=== PATIENT | male | born 1965 | race Caucasian/White ===

== ENCOUNTER → 2019-02-26 14:52 | Outpatient (CLI) | payer MEDICAID, SELFPAY ==
--- NOTE | 2019-02-26 15:10 | US_ITS ---
US abdomen limited History:Right upper quadrant pain Ordering Physician:Donna Beavers APRN Patient Age: 53 years Comparison:02/25/2019 Findings: Pancreas: Poorly demonstrated due to overlying bowel gas. Liver:Unremarkable. No obvious mass or abnormal fluid collection. No ductal dilatation Right Kidney:Unremarkable. Normal size and echogenicity. No hydronephrosis Gallbladder:No gallstones, gallbladder wall thickening, pericholecystic fluid, or biliary dilatation. Impression:Negative gallbladder/right upper quadrant ultrasound
== END ==
PROVIDERS: PCP Family Medicine; Visit Provider Nurse Practitioner Family
DX: R10.11 Right upper quadrant pain (principal); R10.13 Epigastric pain; R11.2 Nausea with vomiting, unspecified
CPT/HCPCS: 76705

== ENCOUNTER → 2019-03-08 09:39 | Outpatient (CLI) | payer MEDICAID, SELFPAY | PROVIDERS: PCP Family Medicine; Visit Provider Family Medicine | DX: R10.11 Right upper quadrant pain (principal) ==

== ENCOUNTER → 2019-11-05 06:40 | Outpatient (CLI) | payer OTHER, SELFPAY ==
--- NOTE | 2019-11-05 06:40 | CA_ITS ---
APPROVED REPORT EXAM: Comprehensive 2D, Doppler, and color-flow Echocardiogram Infant Childcare Provider: Monica Duncan RDCS Ht: 6 ft 3 in Wt: 245lbs BSA: 2.39 BP: 155/86 mmHg Indications: Abnormal ECG, Diabetes, CAD, Hyperlipidemia, Hypertension/HDD 2D Dimensions LVOT 2.86 cm (M/F) 1.5-2.5 M-Mode Dimensions RVDd 2.57 cm (0.9-2.6) LVDd 7.09 cm (3.5-5.7) LVDs 5.63 cm (3.5-5.7) IVSd 1.22 cm (0.6-1.1) PWd 1.37 cm (0.6-1.1) EF (Teich) 40.80% FS 20.60% EDV (Teich) 262.90 mL ESV (Teich) 155.60 mL LV Diastology E/A Ratio 0.31 Mitral Valve MV A Velocity 60.00 (40-130 cm/s) Left Ventricle Left atrium is mildly enlarged, left ventricle is normal size, moderate concentric left ventricular hypertrophy, visually estimated ejection fraction approximately 40 to 45%, intraventricular septum appears to be mildly hypokinetic. Grade 1 diastolic dysfunction seen without tissue Doppler evidence of raise left atrial pressure. Right Ventricle Right atrium and right ventricular normal size and contractility. Aortic Valve Aortic valve is minimally thickened and fibrosed, there is no aortic stenosis or aortic insufficiency. Mitral Valve Mitral valve is grossly normal, there is mild mitral regurgitation. Tricuspid Valve Tricuspid valve is grossly normal, there is mild tricuspid regurgitation, tricuspid regurgitation jet velocity is inadequate for calculation of the right ventricular systolic pressure. Pulmonic Valve Pulmonic valve is poorly visualized. Great Vessels Aortic root is normal size. Pericardium No significant pericardial effusion noted. Conclusion 1. Mildly enlarged left atrium, normal left ventricular size, moderate concentric left ventricular hypertrophy, visually estimated ejection fraction 40 to 45% with segmental wall motion abnormality described above, grade 1 diastolic dysfunction seen without tissue Doppler evidence of raise left atrial pressure. 2. Mild mitral and tricuspid regurgitation. 3. No significant pericardial effusion noted. Electronically signed by : Adam Keller, 11/06/2019 05:43:31
--- NOTE | 2019-11-05 06:40 | CA_ITS ---
APPROVED REPORT Exam: Pharmacologic Technologist: bita villa, Ht: 6 ft 2 in Wt: 239 lbs BSA: 2.34 m2 HR: 80 bpm BP: 158/98 mmHg Indications: Abn. EKG Medical History Medications: Asa,,,,, Hydrocodone,,,,, Pantoprazole,,,,, Carvedilol,,,,, INSULIN,,,,, CloPIdogrel,,,,, FeNOfibrate,,,,, Cyclobenzaprine,,,,, Nitro,,,,, BusIPIRONE,,,,, Sitagliptin,,,,, Ezetlimibe,,,,, Allergies: Tatins, Metformin, sitagliptin, ezetinmibe Cardiac Risk Factors: HTN, Hyperlipidemia, Diabetes (insulin), FHX of CAD, Smoking Stress Test Details Test: LEXISCAN HR Resting HR: 78 bpm Max Heart Rate (APMHR): 168 bpm Max HR Achieved: 102 bpm Target HR (85% APMHR): 142 bpm % of APMHR: 60 Recovery HR: 94 bpm BP Resting BP: 158/98 mmHg Max BP: 158/98 mmHg Recovery BP: 140.0/90.0 mmHg ECG Resting ECG: Sinus rhythm Abn EKG Clinical Exercise duration: 04:00 min Highest Stage Achieved: Exercise capacity: 1.0 METs Stress ECG Conclusion Lexiscan portion completed. C/O SOB at peak infusion. No CP or ectopy. Greater than 1.5mm ST Depression. Images to follow. Electronically signed by : Adam Keller, 11/05/2019 20:01:51
--- NOTE | 2019-11-05 06:40 | NM_ITS ---
APPROVED REPORT Exam: Nuclear Stress Test Indication: CAD, Hx of SD, HTN, DM, High cholesterol, Tobacco use, Family history, Abnormal EKG Patient Location: Outpatient Stress Tech: Isabel Moore [place] Tech:Mali Shanks, ARRT, RT (R)(N) Ht: 6 ft 2 in Wt: 239 lbs HR: 80 bpm BP: 158/98 mmHg BSA: 2.34 m2 BMI: 30.6 History: CAD, Hx of SD, HTN, DM, High cholesterol, Tobacco use, Family history, Abnormal EKG Procedure: Patient received a 0.4 mg of intravenous Lexiscan, resting heart rate 80 bpm, resting blood pressure 158/98 mmHg, with Lexiscan maximum heart rate achived was 101 bpm which is Less than 85 % of the maximum predicted heart rate and blood pressure was 148/92 mmHg. With Lexiscan, patient denied any complaint of chest pain. Electrocardiogram Resting electrocardiogram shows sinus rhythm nonspecific ST-T changes, with Lexiscan there is additional millimeter ST segment depression noted from the baseline EKG. The EKG portion of the Lexiscan Myoview is nondiagnostic. Cardiac Stress and Resting SPECT Images: Cardiac Stress and Resting SPECT images were obtained using technetium 99m Myoview 31.6 mCi stress and 10.25 mCi at rest. Gated SPECT with analysis of segmental wall motion and calculation of the ejection fraction also done. Cardiac stress and resting SPECT images show decrease tracer activity in the inferolateral and lateral wall which improves on the resting images suggestive of reversible ischemia, computer derived ejection fraction is 33% with moderate inferolateral and lateral wall hypokinesis, right ventricle is normal size and contractility. Conclusion: 1. The EKG portion of the Lexiscan Myoview is nondiagnostic. 2. Scintigraphic evidence of reversible ischemia involving the inferolateral lateral wall, computer derived ejection fraction is 33% with segmental wall motion abnormality described above, right ventricle is normal size and contractility. 3. Abnormal Lexiscan Myoview study. Electronically signed by : Adam Keller, 11/05/2019 20:05:12
--- NOTE | 2019-11-05 09:19 | HMH.ITSHM ---
Current Home Medications as stated by this patient Jesus Manuel Macario or risk control field representative. []PANTOPRAZOLE NITRO INSULIN HYDROCODONE FENOFIBRATE CYCLOBENZPRINE CLOPIDOGREL CARVEDILOL BUSPIRONE ASA
== END ==
PROVIDERS: PCP Family Medicine; Visit Provider Nurse Practitioner Family
DX: R94.31 Abnormal electrocardiogram [ECG] [EKG] (principal); I25.10 Atherosclerotic heart disease of native coronary artery without angina pectoris; E78.5 Hyperlipidemia, unspecified; I11.9 Hypertensive heart disease without heart failure; F17.200 Nicotine dependence, unspecified, uncomplicated
CPT/HCPCS: 78452; 93017; 93306; A9502; J2785

== ENCOUNTER → 2021-04-23 08:45 | Outpatient (CLI) | payer OTHER, SELFPAY ==
[2021-04-23 09:50] LABS: Blood Urea Nitrogen 17 mg/dl (9-20); Estimated Glomerular Filt Rate 88 ml/min (>60); GFR (African American) 107 ML/MIN (>60)
== END ==
PROVIDERS: Visit Provider Family Medicine
DX: I10 Essential (primary) hypertension (principal)
CPT/HCPCS: 36415; 82565; 84520

== ENCOUNTER 2021-04-29 08:00 | Emergency (ER) | payer OTHER, SELFPAY ==
[2021-04-29 08:01] VITALS: BP 180/119; PULSE 98; RESP 18; TEMP 37.1; O2SAT 98; BMI 29.2
--- NOTE | 2021-04-29 08:21 | CT_ITS ---
PROCEDURE: CT ABDOMEN PELVIS W CON CLINICAL INDICATION: abdominal pain Epigastric pain radiating into the back COMPARISON: CT ABDPELW CT abdomen pelvis w con from 02/25/2019 TECHNIQUE: IV Contrast: 75ML Isovue 370 Oral Contrast None Axial images obtained with sagittal and coronal reformats. All CT scans at the facility use one or more dose reduction, viz: automated exposure control, ma/kV adjustment per patient size (including targeted exams where dose is matched to indication, i.e. head), or iterative reconstruction technique. FINDINGS: Fatty liver. The gallbladder is mildly distended. The spleen and adrenal glands are unremarkable. There is very mild haziness of the Lo pancreatic fat at the region of the head of the pancreas which was not present on 02/25/2019 suggesting mild acute pancreatitis. There is no evidence of pancreatic necrosis. There is mild thickening of the descending duodenum. No free air. No renal or ureteral calculi. No hydronephrosis. There is a small parenchymal scar in bobbing the right kidney laterally. No intestinal obstruction or free air. Mildly prominent small bowel loops are present in the left mid abdominal region with a few air-fluid levels possibly related to ileus. There is a small right inguinal hernia containing fat. There are few colonic diverticula but no evidence of diverticulitis. The appendix has an unremarkable appearance No acute bony findings. No pelvic mass. Small sclerotic focus is present in the left ilium medially and may be due to small bone island. IMPRESSION: 1. There is minimal haziness of the peripancreatic fat at the head of the pancreas and also along the descending and proximal transverse portion of the duodenum. These findings may be related to mild acute pancreatitis. Duodenitis could also cause these changes. Please correlate with clinical parameters 2. Other nonacute findings as described above. Dictated by: Jeremiah Cristobal MD 04/29/2021 09:22 Jeremiah Cristobal MD in [place] 04/29/2021 09:22
--- NOTE | 2021-04-29 08:31 | ECG_ITS ---
APPROVED REPORT Exam: Resting ECG HR:87 bpm ECG Measurements Heart Rate 87 AXES HI 120 P 35 QRSd 106 QRS -47 QT 394 T 149 QTc 474 Conclusion Normal sinus rhythm Left anterior fascicular block ST & T wave abnormality, consider lateral ischemia Prolonged QT Abnormal ECG Electronically signed by : Ashish Le MD 05/01/2021 12:11:00
[2021-04-29 08:38] LABS: Basophils % 0.3 % (0.1-2.0); Chloride 101 mmol/L (98-107); Eosinophils # 0.1 K/mm3 (0.0-0.4); Eosinophils % 0.8 % (0.1-12.0); Hematocrit 51.8 % (42.0-52.0); Lymphocytes # 1.9 K/mm3 (0.7-4.5); Lymphocytes % 18.3 % (10-50); Mean Corpuscular HGB Conc 32.8 g/dL (31.8-35.4); Mean Corpuscular Hemoglobin 28.7 pg (27.0-31.2); Mean Corpuscular Volume 87.3 fl (80-94); Mean Platelet Volume 8.2 fl (7.4-10.4); Monocytes # 0.6 K/mm3 (0.1-1.0); Monocytes % 5.3 % (1.7-9.3); Neutrophils % 75.3 % (37.0-80.0); Platelet Count 268 K/mm3 (142-424); Potassium 4.6 mmoL/L (3.5-5.1); Red Blood Count 5.93 M/mm3 (4.60-6.20); Red Cell Distribution Width 13.5 % (11.5-17.5); Sodium 139 mmol/L (136-145); White Blood Count 10.6 K/mm3 (4.8-10.8)
[2021-04-29 08:40] LABS: Alanine Aminotransferase 16 U/L (12-78); Alkaline Phosphatase 116 U/L (38-126); Aspartate Amino Transferase 21 U/L (17-59); Blood Urea Nitrogen 20 mg/dl (9-20); Creatinine Clearance Estimated 125 mL/min (50-200); Estimated Glomerular Filt Rate 78 ml/min (>60); GFR (African American) 95 ML/MIN (>60)
[2021-04-29 08:41] LABS: Albumin Level 4.6 g/dl (3.5-5.0); Albumin/Globulin Ratio 1.2 (1.1-1.8); Anion Gap 14.6 mEq/L (5-15); Calcium 9.2 mg/dl (8.4-10.2); Carbon Dioxide 28 mmol/L (22.0-30.0); Glucose 303 mg/dl (74-100); Lipase 1778 U/L (23-300); Total Protein,Serum 8.6 g/dl (6.3-8.2)
--- NOTE | 2021-04-29 09:12 | HMH.EDABDPAI ---
ED Disposition Clinical Impression: Pancreatitis Disposition: Home, Self-Care Condition on Discharge: Good Instructions: Acute Pancreatitis Prescriptions: Hydrocod/Acet 5/325 mg [Mallie 5/325mg tablet] 1 tab PO QID PRN 3 Days #12 tab PRN Reason: Mild Pain Transmission Status: Received by [facility] Ondansetron [Zofran 4mg ODT] 4 mg PO TIDP PRN #15 tab PRN Reason: Nausea Transmission Status: Pending to [facility] Referrals: Ashish Eisenberg MD [Primary Care Provider] - - Critical Care Critical Care Time: No Attestation: On 04/29/21, the high probability of a clinically significant, sudden or life threatening deterioration of the following system(s) required my full and direct attention, intervention and personal management. The time I documented below is in addition to time spent performing reported procedures but includes the following listed in this critical care notation. Medical Decision Making - Medical Records Medical records reviewed: Yes: I reviewed the patient's medical records. - Puma Inquiry Pt receiving controlled substance: No Vital Signs: 04/29/21 08:01 Temperature 98.7 F Temperature Source Oral Pulse Rate [Right Radial] 98 H Respiratory Rate 18 Blood Pressure [Right Arm] 180/119 H Blood Pressure Mean [Right Arm] 139 Blood Pressure Source [Right Arm] Automatic Cuff Blood Pressure Position [Right Arm] Sitting 02 Sat by Pulse Oximetry 98 Oxygen Delivery Method Room Air - Lab Data Lab Results 04/29/21 08:22: WBC 10.6, RBC 5.93, Hgb 17.0, Hct 51.8, MCV 87.3, MCH 28.7, MCHC 32.8, RDW 13.5, Plt Count 268, MPV 8.2, Neut % (Auto) 75.3, Lymph % (Auto) 18.3, [place] % (Auto) 5.3, Eos % (Auto) 0.8, Baso % (Auto) 0.3, Neut # (Auto) 8.0 H, Lymph # (Auto) 1.9, [place] # (Auto) 0.6, Eos # (Auto) 0.1, Baso # (Auto) 0.0 04/29/21 08:22: Sodium 139, Potassium 4.6, Chloride 101, Carbon Dioxide 28, Anion Gap 14.6, BUN 20, Creatinine 1.00, Estimated Creat Clear 125, Estimated GFR 78, Est GFR ( Amer) 95, Glucose 303 H, Calcium 9.2, Total Bilirubin 1.0, AST 21, ALT 16, Alkaline Phosphatase 116, Total Protein 8.6 H, Albumin 4.6, Globulin 4.0 H, Albumin/Globulin Ratio 1.2, Lipase 1778 H Result diagrams: 04/29/21 08:22 04/29/21 08:22 Orders (Tests/Meds): ED MEDICATIONS Discontinued Medications Generic Name Dose Route Start Last Admin Trade Name Freq PRN Reason Stop Dose Admin Belladonna Alkaloids 60 ml 04/29/21 08:23 04/29/21 08:42 Gi Cocktail 60ml Udc PO 04/29/21 08:24 60 ml ONCE ONE Administration Sodium Chloride 1,000 mls @ 999 mls/hr 04/29/21 08:30 04/29/21 08:41 Sod Chlor 0.9% 1000ml Bag IV 04/29/21 09:30 999 mls/hr .Q1H1M ARISTIDES Administration Iopamidol 75 ml 04/29/21 08:56 04/29/21 08:57 Iopamidol-370 (76%);100ml Bottle IV 04/29/21 08:57 75 ml ONCE ONE Administration Morphine Sulfate 4 mg 04/29/21 08:21 04/29/21 08:42 Morphine 4mg/Ml Syringe IV 04/29/21 08:22 4 mg ONCE ONE Administration Ondansetron HCl 4 mg 04/29/21 08:21 04/29/21 08:42 Ondansetron 4mg Odt SL 04/29/21 08:22 Not Given ONCE ONE Ondansetron HCl 4 mg 04/29/21 08:43 04/29/21 08:43 Ondansetron 4mg/2ml Vial IV 04/29/21 08:44 4 mg ONCE ONE Administration Sodium Chloride 10 ml 04/29/21 08:56 04/29/21 08:57 Sodium Chloride 0.9% 10ml Syr (Rad Only) IV 04/29/21 08:57 10 ml ONCE ONE Administration Medical Decision Narrative: 55 yo M presents with abdominal pain. He is in no acute distress nontoxic-appearing comfortable in the bed however does have tender abdomen. Vital signs otherwise stable. CT scanning and labs obtained given pain medicine. Lipase did return at greater than 1700. Consistent with acute pancreatitis. CT scan shows no complications. Patient's pain is markedly improved. He is requesting be discharged at this time plan to discharge with pain meds and nausea meds and precautions for pancreatitis
[2021-04-29 10:14] VITALS: BP 144/100; PULSE 79; RESP 20; TEMP 36.9; O2SAT 94
== END 2021-04-29 10:16 | disposition home or self-care (01) ==
PROVIDERS: Emergency Provider Emergency Medicine; PCP Family Medicine
DX: K85.90 Acute pancreatitis without necrosis or infection, unspecified (principal); E11.65 Type 2 diabetes mellitus with hyperglycemia; Z79.899 Other long term (current) drug therapy; F17.210 Nicotine dependence, cigarettes, uncomplicated
CPT/HCPCS: 74177; 80053; 83690; 85025; 93005; 96365; 96375; 99283; J2405; Q9967

== ENCOUNTER → 2021-05-08 12:00 | Outpatient (CLI) | payer OTHER, SELFPAY ==
--- NOTE | 2021-05-08 12:13 | CT_ITS ---
Procedure: CT ANGIO ABDOMEN CLINICAL HISTORY: ESSENTIAL PRIMARY HYPERTENSION COMPARISON: No exams were available for comparison TECHNIQUE: IV Contrast: 100ml Isovue 370 Axial images obtained with sagittal and coronal reformats. All CT scans at the facility use one or more dose reduction, viz: automated exposure control, ma/kV adjustment per patient size (including targeted exams where dose is matched to indication, i.e. head), or iterative reconstruction technique. FINDINGS: There are mild atheromatous changes the mid and distal abdominal aorta with mild fusiform dilatation of the infrarenal abdominal aorta measuring up to 2.6 by 2.5 cm extending to the aortic bifurcation. The celiac and superior mesenteric arteries have an unremarkable appearance. The DEAN is patent. There is a single renal artery to each kidney. No renal artery stenosis apparent. No evidence fibromuscular dysplasia. No renal artery aneurysm. 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 The left common iliac is also slightly prominent at 1.2 cm. Atheromatous changes involve the iliac vessels but no significant stenosis is evident. No vascular dissection is apparent. No renal mass. The adrenal glands have an unremarkable appearance. Incidental note is made of colonic diverticulosis. No evidence of diverticulitis. The liver, spleen, pancreas, kidneys, and adrenal glands have an unremarkable appearance. No evidence of appendicitis. There is a mild amount of retained colonic feces. IMPRESSION: 1. No evidence of renal artery stenosis, aneurysm, FMD, or renal mass. No adrenal mass. 2. Mild fusiform dilatation of the lower abdominal aorta extending to and involving the aortic bifurcation measuring 2.6 x 2.5 cm with fusiform dilatation of the right common iliac artery at 1.8 cm. Dictated by: Jeremiah Cristobal MD 05/12/2021 08:30 Jeremiah Cristobal MD in [place] 05/12/2021 08:30
[2021-05-08 12:25] LABS: Blood Urea Nitrogen 18 mg/dl (9-20); Estimated Glomerular Filt Rate 88 ml/min (>60); GFR (African American) 107 ML/MIN (>60)
== END ==
PROVIDERS: PCP Family Medicine; Visit Provider Family Medicine
DX: I10 Essential (primary) hypertension (principal)
CPT/HCPCS: 36415; 74175; 82565; 84520; Q9967

== ENCOUNTER 2021-11-28 16:29 | Inpatient (IN) | payer OTHER, SELFPAY ==
[2021-11-28] VITALS (30 sets, daily range): BP systolic 110–137; BP diastolic 65–98; PULSE 60–167; RESP 10–24; TEMP 36.6–36.8; O2SAT 83–103; BMI 28.2; BMI 28.3
--- NOTE | 2021-11-28 16:52 | XR_ITS ---
PROCEDURE INFORMATION: Exam: XR Chest Exam date and time: 11/28/2021 5:02 PM Age: 56 years old Clinical indication: Shortness of breath; Additional info: Jose SOAlana TECHNIQUE: Imaging protocol: XR of the chest. Views: 1 view. COMPARISON: CR Chest 02/25/2019 11:27 PM FINDINGS: Airway: Patent Lungs: Low lung volumes causes crowding of the bronchovascular structures. No acute interstitial or airspace disease. Pleural spaces: Unremarkable. No pleural effusion. No pneumothorax. Heart/Mediastinum: Cardiomediastinal silhouette is magnified due to technique. Bones/joints: No acute skeletal abnormality or aggressive osseous lesion. IMPRESSION: No acute thoracic pathology.
--- NOTE | 2021-11-28 16:52 | ECG_ITS ---
APPROVED REPORT Exam: Resting ECG HR:157 bpm ECG Measurements Heart Rate 157 AXES QRSd 113 QRS 49 QT 301 T 192 QTc 389 Conclusion ATRIAL FIBRILLATION WITH RAPID VENTRICULAR RESPONSE MODERATE INTRAVENTRICULAR CONDUCTION DELAY [110+ ms QRS DURATION] MARKED ST DEPRESSION, CONSIDER SUBENDOCARDIAL INJURY [0.2+ mV ST DEPRESSION] ACUTE OK UNCONFIRMED REPORT Electronically signed by : Ashish Le MD 11/29/2021 20:16:37
[2021-11-28 17:14] LABS: Chloride 104 mmol/L (98-107)
[2021-11-28 17:15] LABS: Potassium 3.9 mmoL/L (3.5-5.1); Sodium 137 mmol/L (136-145)
[2021-11-28 17:18] LABS: Anion Gap 11.9 mEq/L (5-15); Blood Urea Nitrogen 25 mg/dl (9-20); Carbon Dioxide 25 mmol/L (22.0-30.0); Creatinine Clearance Estimated 92 mL/min (50-200); Estimated Glomerular Filt Rate 58 ml/min (>60); GFR (African American) 70 ML/MIN (>60); Glucose 335 mg/dl (74-100)
[2021-11-28 17:21] LABS: Basophils # 0.1 K/mm3 (0-0.2); Basophils % 1.1 % (0.1-2.0); Eosinophils # 0.1 K/mm3 (0.0-0.4); Eosinophils % 0.7 % (0.1-12.0); Hematocrit 47.8 % (42.0-52.0); Hemoglobin 15.4 g/dL (14.1-18.0); Lymphocytes # 2.8 K/mm3 (0.7-4.5); Lymphocytes % 23.8 % (10-50); Mean Corpuscular HGB Conc 32.3 g/dL (31.8-35.4); Mean Corpuscular Hemoglobin 29.2 pg (27.0-31.2); Mean Corpuscular Volume 90.5 fl (80-94); Mean Platelet Volume 8.8 fl (7.4-10.4); Monocytes # 0.6 K/mm3 (0.1-1.0); Neutrophils # 8.2 K/mm3 (1.8-7.8); Neutrophils % 69.5 % (37.0-80.0); Platelet Count 321 K/mm3 (142-424); Red Blood Count 5.28 M/mm3 (4.60-6.20); Red Cell Distribution Width 14.6 % (11.5-17.5); White Blood Count 11.8 K/mm3 (4.8-10.8)
[2021-11-28 17:28] LABS: NT Pro Brain Natriuretic Pep. 1230 pg/mL (0-125)
[2021-11-28 17:30] LABS: Troponin I 0.03 ng/ml (0.00-0.034)
--- NOTE | 2021-11-28 17:31 | PC.NURSE ---
2 EKG upon arrival. hr lowered with med. stil Afib rvr
[2021-11-28 17:44] LABS: Coronavirus 19, PCR Not Detected (NotDetected); Influenza A, PCR Not Detected (NotDetected); Influenza B, PCR Not Detected (NotDetected)
[2021-11-28 19:57] LABS: Troponin I 0.53 ng/ml (0.00-0.034)
--- NOTE | 2021-11-28 19:58 | PC.NURSE ---
Dr. Santiago notifeid of critical troponin
--- NOTE | 2021-11-28 20:09 | PC.NURSE ---
Called [facility] and s/w Jaylen, for xarelto dosing for new onset afib. States 20mg daily
--- NOTE | 2021-11-28 20:22 | HMH.EDGENADL ---
ED Disposition Clinical Impression: Atrial fibrillation with rapid ventricular response, NSTEMI (non-ST elevated myocardial infarction) Disposition: Admitted As Inpatient Condition on Discharge: Good - Critical Care Critical Care Time: Yes Attestation: On 11/28/21, the high probability of a clinically significant, sudden or life threatening deterioration of the following system(s) required my full and direct attention, intervention and personal management. The time I documented below is in addition to time spent performing reported procedures but includes the following listed in this critical care notation. Vital system(s) involved:: Circulatory Failure My critical care processes included: Assessment & monitoring of V/S, Initial and Re-exams, Data Review/Interpretation, Coordinating Care, Medication Orders and management Medical Decision Making - Medical Records Medical records reviewed: Yes: I reviewed the patient's medical records. - Puma Inquiry Pt receiving controlled substance: No Vital Signs: 11/28/21 16:29 11/28/21 16:42 11/28/21 17:01 Temperature 98.3 F Temperature Source Oral Pulse Rate 61 101 H Pulse Rate [Right Radial] 167 H Respiratory Rate 22 23 21 Blood Pressure 115/78 112/67 Blood Pressure [Right Arm] 127/85 Blood Pressure Mean 85 85 Blood Pressure Mean [Right Arm] 99 Blood Pressure Source [Right Arm] Automatic Cuff Blood Pressure Position [Right Arm] Sitting 02 Sat by Pulse Oximetry 96 97 95 Oxygen Delivery Method Room Air 11/28/21 17:30 11/28/21 17:47 11/28/21 17:51 Temperature Temperature Source Pulse Rate 125 H 152 H 118 H Pulse Rate [Right Radial] Respiratory Rate 19 22 17 Blood Pressure 127/70 127/65 128/96 H Blood Pressure [Right Arm] Blood Pressure Mean 90 81 106 Blood Pressure Mean [Right Arm] Blood Pressure Source [Right Arm] Blood Pressure Position [Right Arm] 02 Sat by Pulse Oximetry 96 97 97 Oxygen Delivery Method 11/28/21 18:01 11/28/21 18:11 11/28/21 18:21 Temperature Temperature Source Pulse Rate 122 H 119 H 108 H Pulse Rate [Right Radial] Respiratory Rate 13 17 24 Blood Pressure 120/69 121/65 110/69 Blood Pressure [Right Arm] Blood Pressure Mean 86 89 82 Blood Pressure Mean [Right Arm] Blood Pressure Source [Right Arm] Blood Pressure Position [Right Arm] 02 Sat by Pulse Oximetry 96 Oxygen Delivery Method 11/28/21 18:31 11/28/21 18:41 11/28/21 18:51 Temperature Temperature Source Pulse Rate 93 H 119 H 103 H Pulse Rate [Right Radial] Respiratory Rate 22 18 20 Blood Pressure 127/75 119/72 136/81 Blood Pressure [Right Arm] Blood Pressure Mean 81 77 93 Blood Pressure Mean [Right Arm] Blood Pressure Source [Right Arm] Blood Pressure Position [Right Arm] 02 Sat by Pulse Oximetry 96 97 96 Oxygen Delivery Method - Lab Data Lab Results 11/28/21 16:30: WBC 11.8 H, RBC 5.28, Hgb 15.4, Hct 47.8, MCV 90.5, MCH 29.2, MCHC 32.3, RDW 14.6, Plt Count 321, MPV 8.8, Neut % (Auto) 69.5, Lymph % (Auto) 23.8, [place] % (Auto) 5.0, Eos % (Auto) 0.7, Baso % (Auto) 1.1, Neut # (Auto) 8.2 H, Lymph # (Auto) 2.8, [place] # (Auto) 0.6, Eos # (Auto) 0.1, Baso # (Auto) 0.1 11/28/21 16:30: Sodium 137, Potassium 3.9, Chloride 104, Carbon Dioxide 25, Anion Gap 11.9, BUN 25 H, Creatinine 1.30 H, Estimated Creat Clear 92, Estimated GFR 58 L, Est GFR ( Amer) 70, Glucose 335 H, Calcium 8.0 L, Troponin I 0.03 11/28/21 16:30: NT-Pro-B Natriuret Pep 1230 H 11/28/21 17:39: SARS-CoV-2 (PCR) Not detected, Influenza A Untype (PCR) Not detected, Influenza Type B (PCR) Not detected 11/28/21 19:10: Troponin I 0.53 H Result diagrams: 11/28/21 16:30 11/28/21 16:30 Orders (Tests/Meds): ED MEDICATIONS Generic Name Dose Route Start Last Admin Trade Name Freq PRN Reason Stop Dose Admin Diltiazem HCl 100 mg/ Sodium 100 mls @ 5 mls/hr 11/28/21 17:45 11/28/21 18:01 Chloride IV
--- NOTE | 2021-11-28 21:00 | ECG_ITS ---
APPROVED REPORT Exam: Resting ECG HR:81 bpm ECG Measurements Heart Rate 81 AXES QRSd 114 QRS -8 QT 395 T 181 QTc 432 Conclusion ATRIAL FIBRILLATION MODERATE INTRAVENTRICULAR CONDUCTION DELAY [110+ ms QRS DURATION] ST DEVIATION AND MODERATE T-WAVE ABNORMALITY, CONSIDER LATERAL ISCHEMIA [-0.1+ mV T-WAVE IN I/aVL/V5/V6] ABNORMAL ECG UNCONFIRMED REPORT Electronically signed by : Ashish Le MD 11/29/2021 20:12:36
--- NOTE | 2021-11-28 21:43 | PC.NURSE ---
second ekg completed by Clark Jimenez RN
--- NOTE | 2021-11-28 22:31 | PC.NURSE ---
patient up to floor via wheelchair @ this time.
[2021-11-28 23:22] LABS: POC Glucose,Bedside 259 (70-110)
[2021-11-28 23:37] LABS: Troponin I 2.66 ng/ml (0.00-0.034)
[2021-11-29] VITALS (9 sets, daily range): BP systolic 124–174; BP diastolic 68–99; PULSE 70–84; RESP 16–20; TEMP 36.6–36.9; O2SAT 94–97
[2021-11-29 00:42] LABS: PTT Heparin (inpatient only) 27.5 Seconds (23.6-34.0)
[2021-11-29 06:17] LABS: POC Glucose,Bedside 227 (70-110)
--- NOTE | 2021-11-29 06:39 | PC.NURSE ---
pt has rested intermittently since arriving to floor, has not complained of chest pain or SOA, EKG done when patient arrived to floor, Dr. Kc notified of pt converting to SR and gave order for PO cardizem, PO med given at 2330 and cardizem gtt turned off at 0030, critical troponin of 2.66 called at 2337, Dr. Kc notified and gave order for heparin bolus and gtt, [facility] contacted for dosing, baseline PTT drawn, pt has remained in SR t/o shift with HR 73-83, systolic BP 124-147, using urinal independently, 350 mL out so far this shift
[2021-11-29 07:34] LABS: Basophils # 0.1 K/mm3 (0-0.2); Basophils % 0.6 % (0.1-2.0); Eosinophils # 0.1 K/mm3 (0.0-0.4); Eosinophils % 1.5 % (0.1-12.0); Lymphocytes # 2.1 K/mm3 (0.7-4.5); Lymphocytes % 28.3 % (10-50); Mean Corpuscular HGB Conc 31.2 g/dL (31.8-35.4); Mean Corpuscular Hemoglobin 28.8 pg (27.0-31.2); Mean Corpuscular Volume 92.5 fl (80-94); Mean Platelet Volume 8.7 fl (7.4-10.4); Monocytes # 0.5 K/mm3 (0.1-1.0); Monocytes % 6.3 % (1.7-9.3); Neutrophils # 4.7 K/mm3 (1.8-7.8); Neutrophils % 63.3 % (37.0-80.0); Platelet Count 235 K/mm3 (142-424); Red Blood Count 4.87 M/mm3 (4.60-6.20); Red Cell Distribution Width 14.7 % (11.5-17.5); White Blood Count 7.5 K/mm3 (4.8-10.8)
[2021-11-29 07:37] LABS: Anion Gap 6.7 mEq/L (5-15); Blood Urea Nitrogen 20 mg/dl (9-20); Calcium 7.9 mg/dl (8.4-10.2); Carbon Dioxide 30 mmol/L (22.0-30.0); Chloride 104 mmol/L (98-107); Creatinine Clearance Estimated 150 mL/min (50-200); Estimated Glomerular Filt Rate 101 ml/min (>60); GFR (African American) 122 ML/MIN (>60); Glucose 218 mg/dl (74-100); Potassium 3.7 mmoL/L (3.5-5.1); Sodium 137 mmol/L (136-145)
[2021-11-29 07:38] LABS: PTT Heparin (inpatient only) 27.9 Seconds (23.6-34.0)
--- NOTE | 2021-11-29 08:56 | HMH.HP ---
*Admission Date: 11/28/21 *Chief complaint: Dyspnea/chest pressure *History of present illness: 56-year-old white male, prior patient of Dr. Eisenberg who follows with Dr. Kc for coronary care and has had 5 stents placed over the past several years, who remains a heavy smoker, came to the emergency department with a feeling of new onset chest pressure, rapid heart rate and presyncope. Found to have A. fib with rapid ventricular response. ER treatment with bolus Cardizem resulted in lower rate, he was placed on p.o. Cardizem, and was found to have slightly elevated troponin levels. Admitted to hospital for further diagnostic testing and observation. [facility] History I have reviewed the patient's past medical history: Yes Medical History: Reports:: Atherosclerotic Heart Disease, Atrial Fibrillation, Coronary Artery Disease, Diabetes Mellitus Type 2, Hyperlipidemia, Hypertension, Myocardial Infarction Denies:: Cancer, Diabetes Mellitus Type 1, MRSA *Have you ever received a pneumonia vaccine?: No *Have you received a flu vaccine this season?: No Other Surgeries: Yes: Cardiac Catheterization ([facility] 11/07/14 2 stents, [facility] 06/12/18 3 stents) Amputation: No - *Social History Smoking Status: Current every day smoker Tobacco Type: cigarettes # Packs/Day (cigarettes): 1 Alcohol Intake: never Substance Use Type: denies use *Occupational Status:: employed *Travel in the last 8 weeks: None Family Hx:: Diabetes, Heart Attack Review of Systems - Review of Systems Review of systems:: pertinent systems reviewed and negative unless documented below This morning patient denies complaints except for very mild fatigue. Notes that his chest pressure, syncope symptomatology and rapid heart rate have resolved. [facility] Home Medications Medication Instructions Recorded Confirmed Type carvedilol 25 mg tablet 25 mg PO BID 06/16/18 11/28/21 History clopidogrel 75 mg tablet 75 mg PO DAILY 06/16/18 11/29/21 History hydrocodone 10 mg-acetaminophen 1 tab PO Q4-6H PRN 06/16/18 11/28/21 History 325 mg tablet insulin degludec 100 unit/mL (3 50 unit SQ DAILY ml 06/19/18 11/28/21 History mL) subcutaneous pen cyclobenzaprine 10 mg tablet 10 mg PO TID PRN 10/16/19 11/28/21 History pantoprazole 40 mg tablet,delayed 40 mg PO DAILY tab 10/16/19 11/28/21 History release Aspirin [Low Dose Aspirin EC] 81 mg PO DAILY 11/28/21 11/28/21 History Allergies Allergy/AdvReac Type Severity Reaction Status Date / Time Bvsicoz-Xya-Agd Reductase Allergy Severe Muscle Pain Verified 11/29/21 02:50 Inhibitor metformin [From Sepumet] Allergy Verified 11/29/21 02:50 sitagliptin [From Janumet] Allergy Verified 11/29/21 02:50 ezetimibe [From Zetia] AdvReac muscle Verified 11/29/21 02:50 cramps TRAMADOL Allergy Intermediate I-ITCHING Uncoded 10/16/19 09:31 From OXYCONTIN Allergy Unknown I-ITCHING Uncoded 10/16/19 09:31 LISINOPRIL Allergy Unknown S-SWELLS-OR Uncoded 10/16/19 09:31 AL/THROAT Exam Vital signs and Labs for Last 24 Hours: Temp Pulse Resp BP Pulse Ox 97.8 F 70 16 151/92 H 95 11/29/21 08:00 11/29/21 08:00 11/29/21 08:00 11/29/21 08:00 11/29/21 08:00 Laboratory Results - last 24 hr 11/28/21 16:30: WBC 11.8 H, RBC 5.28, Hgb 15.4, Hct 47.8, MCV 90.5, MCH 29.2, MCHC 32.3, RDW 14.6, Plt Count 321, MPV 8.8, Neut % (Auto) 69.5, Lymph % (Auto) 23.8, [place] % (Auto) 5.0, Eos % (Auto) 0.7, Baso % (Auto) 1.1, Neut # (Auto) 8.2 H, Lymph # (Auto) 2.8, [place] # (Auto) 0.6, Eos # (Auto) 0.1, Baso # (Auto) 0.1 11/28/21 16:30: Sodium 137, Potassium 3.9, Chloride 104, Carbon Dioxide 25, Anion Gap 11.9, BUN 25 H, Creatinine 1.30 H, Estimated Creat Clear 92, Estimated GFR 58 L, Est GFR ( Amer) 70, Glucose 335 H, Calcium 8.0 L, Troponin I 0.03 11/28/21 16:30: NT-Pro-B Natriuret Pep 1230 H 11/28/21 17:39: SARS-CoV-2 (PCR) Not detected, Influenza A Untype (PCR) Not detected, Influenza Type B (PCR) Not detected 11/28/21 19:10: Troponin I 0.53 H 03
--- NOTE | 2021-11-29 10:47 | HMH.PHAHEP ---
[facility] Pharmacy Heparin Dosing - Demographic Data Admission date:: 11/28/21 Date: 11/29/21 Time: 10:47 Allergies/Adverse Reactions: Allergies Allergy/AdvReac Type Severity Reaction Status Date / Time Qbfqsxk-Aqb-Nlw Reductase Allergy Severe Muscle Pain Verified 11/29/21 02:50 Inhibitor metformin [From Janumet] Allergy Verified 11/29/21 02:50 sitagliptin [From Janumet] Allergy Verified 11/29/21 02:50 ezetimibe [From Zetia] AdvReac muscle Verified 11/29/21 02:50 cramps TRAMADOL Allergy Intermediate I-ITCHING Uncoded 10/16/19 09:31 From OXYCONTIN Allergy Unknown I-ITCHING Uncoded 10/16/19 09:31 LISINOPRIL Allergy Unknown S-SWELLS-OR Uncoded 10/16/19 09:31 AL/THROAT Height: 1.88 m Weight: 100.2 kg - Indication Medication therapy:: Heparin Patient Problems: Current Active Problems Atrial fibrillation with rapid ventricular response (Acute) NSTEMI (non-ST elevated myocardial infarction) (Acute) Coronary arteriosclerosis (Chronic) Hypertensive heart disease (Chronic) Tobacco dependence syndrome (Chronic) Hyperlipidemia (Chronic) Diabetes mellitus (Chronic) CVA?: No Bleeding problem?: No Kidney disease?: No MO?: Yes Desired PTT range:: Other - Labs Anticoagulation Lab Results:: 11/28/21 11/29/21 16:30 06:47 Hgb 15.4 14.0 L Hct 47.8 45.0 Plt Count 321 235 D - Monitoring Dose Monitor 1 Date: 11/29/21 Time: 00:15 PTT Result:: PTT 27.5 Infusion Rate:: HEPARIN 1000 UNITS/HR-HEPARIN 4000 UNIT BOLUS- PLT 235K Dose Monitor 2 Date: 11/29/21 Time: 06:47 PTT Result:: PTT 27.9 Infusion Rate:: INCREASE HEPARIN DRIP TO 1400 UNITS/HR AND REBOLUS WITH HEPARIN 4000 UNITS/HR PER PROTOCOL. Dose Monitor 3 Date: 11/29/21 Time: 13:00 PTT Result:: PTT 33.9 Infusion Rate:: INCREASE HEPARIN RATE TO 1800 UNITS/HR REBOLUS WITH HEPARIN 4000 UNITS X1. Dose Monitor 4 Date: 11/29/21 Time: 19:00 PTT Result:: PTT 75.2 Infusion Rate:: HEPARIN DRIP CONTINUING AT 1800 UNITS/HR Dose Monitor 5 Date: 11/30/21 Time: 01:00 PTT Result:: PTT 27.3 Infusion Rate:: CONTINUE WITH HEPARIN 1800 UNIT/HR (PUMP WITH HEPARIN SWITCHED OFF FOR A PERIOD OF TIME PER NURSING), REBOLUS WITH HEPARIN 4000 UNITS. Dose Monitor 6 Date: 11/30/21 Time: 08:13 PTT Result:: PTT 47.1 Infusion Rate:: INCREASE HEPARIN TO 1900 UNITS/HR. NO BOLUS WAS GIVEN. - Core Measures Is INR > or = 2 at discharge?: No Most Recent Labs:: Laboratory Results - last 24 hr 11/28/21 16:30: WBC 11.8 H, RBC 5.28, Hgb 15.4, Hct 47.8, MCV 90.5, MCH 29.2, MCHC 32.3, RDW 14.6, Plt Count 321, MPV 8.8, Neut % (Auto) 69.5, Lymph % (Auto) 23.8, [place] % (Auto) 5.0, Eos % (Auto) 0.7, Baso % (Auto) 1.1, Neut # (Auto) 8.2 H, Lymph # (Auto) 2.8, [place] # (Auto) 0.6, Eos # (Auto) 0.1, Baso # (Auto) 0.1 11/28/21 16:30: Sodium 137, Potassium 3.9, Chloride 104, Carbon Dioxide 25, Anion Gap 11.9, BUN 25 H, Creatinine 1.30 H, Estimated Creat Clear 92, Estimated GFR 58 L, Est GFR ( Amer) 70, Glucose 335 H, Calcium 8.0 L, Troponin I 0.03 11/28/21 16:30: NT-Pro-B Natriuret Pep 1230 H 11/28/21 17:39: SARS-CoV-2 (PCR) Not detected, Influenza A Untype (PCR) Not detected, Influenza Type B (PCR) Not detected 11/28/21 19:10: Troponin I 0.53 H 11/28/21 23:00: Troponin I 2.66 H 11/28/21 23:15: POC Glucose 259 H 11/29/21 00:15: APTT 27.5 11/29/21 06:09: POC Glucose 227 H 11/29/21 06:47: WBC 7.5 D, RBC 4.87, Hgb 14.0 L, Hct 45.0, MCV 92.5, MCH 28.8, MCHC 31.2 L, RDW 14.7, Plt Count 235 D, MPV 8.7, Neut % (Auto) 63.3, Lymph % (Auto) 28.3, [place] % (Auto) 6.3, Eos % (Auto) 1.5, Baso % (Auto) 0.6, Neut # (Auto) 4.7, Lymph # (Auto) 2.1, [place] # (Auto) 0.5, Eos # (Auto) 0.1, Baso # (Auto) 0.1 11/29/21 06:47: Sodium 137, Potassium 3.7, Chloride 104, Carbon Dioxide 30, Anion Gap 6.7, BUN 20, Creatinine 0.80 D, Estimated Creat Clear 150, Estimated GFR 101, Est GFR ( Amer) 122 D, Glucose 218 H D, Calcium 7.9 L 0
--- NOTE | 2021-11-29 10:51 | P.CONPHA_ITS ---
[facility] Pharmacy VTE Monitoring - Patient Demographics Admission date: 11/29/21 Report Date: 11/29/21 Time: 10:51 Allergies/Adverse Reactions: Patient Allergies Jogpdhj-Kxw-Drs Reductase Inhibitor Allergy (Severe, Verified 11/29/21 02:50) Muscle Pain metformin [From Janumet] Allergy (Verified 11/29/21 02:50) sitagliptin [From Janumet] Allergy (Verified 11/29/21 02:50) ezetimibe [From Zetia] Adverse Reaction (Verified 11/29/21 02:50) muscle cramps TRAMADOL Allergy (Intermediate, Uncoded 10/16/19 09:31) I-ITCHING From OXYCONTIN Allergy (Unknown, Uncoded 10/16/19 09:31) I-ITCHING LISINOPRIL Allergy (Unknown, Uncoded 10/16/19 09:31) C-JLGQXJ-PKEP/THROAT Height: 1.88 m Weight: 100.2 kg Patient Problems: Current Active Problems Atrial fibrillation with rapid ventricular response (Acute) NSTEMI (non-ST elevated myocardial infarction) (Acute) Coronary arteriosclerosis (Chronic) Hypertensive heart disease (Chronic) Tobacco dependence syndrome (Chronic) Hyperlipidemia (Chronic) Diabetes mellitus (Chronic) - VTE Risk Labs: VTE Related Lab Results Hgb 14.0 g/dL (14.1-18.0) L 11/29/21 06:47 Hct 45.0 % (42.0-52.0) 11/29/21 06:47 Plt Count 235 K/mm3 (142-424) D 11/29/21 06:47 APTT 27.9 Seconds (23.6-34.0) 11/29/21 06:47 BUN 20 mg/dl (9-20) 11/29/21 06:47 Creatinine 0.80 mg/dl (0.66-1.25) D 11/29/21 06:47 Estimated Creat Clear 150 mL/min (50-200) 11/29/21 06:47 VTE Score: 6 VTE Risk Level: Moderate Risk - Prophylaxis Types of VTE Prophylaxis: Pharmacological Location of Applied Device: Not Applicable Pharmacologic Type: Heparin (HEPARIN DRIP ORDERED)
[2021-11-29 11:50] LABS: POC Glucose,Bedside 205 (70-110)
[2021-11-29 13:44] LABS: PTT Heparin (inpatient only) 33.9 Seconds (23.6-34.0)
[2021-11-29 19:40] LABS: PTT Heparin (inpatient only) 75.2 Seconds (23.6-34.0)
--- NOTE | 2021-11-29 19:48 | PC.NURSE ---
1941 Shy contacted with PTT result of 75.2, Jaylen from [facility] stated to make no changes, and that he would put an order in for another PTT at around 0100
[2021-11-29 22:21] LABS: POC Glucose,Bedside 280 (70-110)
[2021-11-30] VITALS (22 sets, daily range): BP systolic 150–180; BP diastolic 62–111; PULSE 67–86; RESP 15–23; TEMP 36.6–37.1; O2SAT 90–99; BMI 28.5
--- NOTE | 2021-11-30 | IR_ITS ---
APPROVED REPORT Patient Location: Inpatient Logistics System Engineer: FORREST Cronin RT (R) PROCEDURES Left heart catheterization Left ventriculogram Selective coronary angiogram Drug-eluting stent deployment to the proximal and mid dominant right coronary Drug-eluting stent deployment to the mid LAD Drug-eluting stent deployment to the proximal circumflex artery extending into a large second obtuse marginal artery INDICATION Acute non-ST elevation myocardial infarction, Coronary artery disease Informed consent was obtained prior to the procedure. COMPLICATIONS NONE Estimated Blood Loss: LESS THAN 10 ML TECHNIQUE One percent lidocaine used to anesthetize the right anterior aspect of the wrist. The right radial artery was accessed via the Seldinger technique. A 6 Albanian sheath was placed in the right radial artery. 2.5 mg of verapamil, 800 mcg of nitroglycerin, 1mg Lidocaine and 5000 U Heparin were given through the arterial sheath. The papa catheter was also used to perform left heart catheterization, left ventriculogram and selective coronary angiogram. At the end the diagnostic angiogram therapeutic heparin was administered giving a therapeutic ACT and the Poppa guide catheter was placed in the right coronary artery followed by a Choice PT extra-support wire. A 3.5 x 38 mm Xience drug-eluting stent was deployed at 24 roxana reducing the critical stenosis. A 4 mm x 15 mm balloon was deployed 3 times at 24 roxana to post dilate. At the end of the procedure RIMMA-3 flow was present before and after the procedure. There are excellent angiographic results therefore the apparatus was removed and the wire was placed back into exchanged out a Poppa catheter for a 6 Albanian XB 4 guide catheter. Angiography demonstrated severe stenosis in the LAD and circumflex artery therefore the Choice PT extra-support wire was placed into the mid LAD. A 3 mm x 33 mm Xience drug-eluting stent was then deployed in the mid LAD at 20 roxana reducing the 2 sequential stenosis to 0%. Wire was pulled back and placed into the circumflex artery. RIMMA-3 flow was present before and after the procedure within the LAD. With the wire in the circumflex artery going into the second obtuse marginal artery artery at 2.75 x 28 mm Xience drug-eluting stent was then deployed at 22 roxana reducing the critical stenosis and severe stenosis to 0%. RIMMA-3 flow was present before and after the procedure. At the end of the procedure the apparatus was removed the sheath was removed and hemostasis was achieved using TR banding patient was transferred to the postop already in stable condition ANGIOGRAPHIC RESULTS The left main artery Normal The left anterior descending artery Has proximal 10 to 20% stenoses followed by a proximal to mid vessel stent which is widely patent free of in-stent restenosis. Distal to the stent there is a concentric 70% stenosis followed by an additional 50% stenosis. Distally there are 30 and 40% LAD stenoses. A large first diagonal artery has an ostial 70 to 80% stenosis and is 2.75 mm in diameter The circumflex artery Is a nondominant vessel and has a focal concentric 90% stenosis immediately proximal to an occluded first obtuse marginal artery. The second obtuse marginal artery then has an additional 50% stenosis The right coronary artery Is a large dominant vessel and has proximal 40 to 50% stenosis with a ruptured plaque in the mid segment creating a greater than 90% stenosis followed by large poststenotic dilated area. The distal dominant right coronary artery has a 50% stenosis which involves a large posterior lateral branch and posterior descending artery The TAMEZ ventriculogram reveals Dilated ventricle estimated at 35% Th
[2021-11-30 01:22] LABS: POC Glucose,Bedside 252 (70-110)
[2021-11-30 01:24] LABS: PTT Heparin (inpatient only) 27.3 Seconds (23.6-34.0)
--- NOTE | 2021-11-30 05:21 | PC.NURSE ---
pt has rested intermittently this shift, ambulating to independently, remains on room air, O2 sats 96-99%, no complaints of SOA or chest pain, HR 81-86, systolic BP 168-174, telemetry strips have shown NSR
[2021-11-30 05:43] LABS: POC Glucose,Bedside 199 (70-110)
[2021-11-30 06:38] LABS: Basophils % 0.4 % (0.1-2.0); Eosinophils # 0.1 K/mm3 (0.0-0.4); Eosinophils % 1.5 % (0.1-12.0); Hematocrit 47.9 % (42.0-52.0); Hemoglobin 15.2 g/dL (14.1-18.0); Lymphocytes # 2.1 K/mm3 (0.7-4.5); Lymphocytes % 29.1 % (10-50); Mean Corpuscular HGB Conc 31.7 g/dL (31.8-35.4); Mean Corpuscular Volume 91.6 fl (80-94); Mean Platelet Volume 8.5 fl (7.4-10.4); Monocytes # 0.4 K/mm3 (0.1-1.0); Monocytes % 5.6 % (1.7-9.3); Neutrophils # 4.5 K/mm3 (1.8-7.8); Neutrophils % 63.3 % (37.0-80.0); Platelet Count 243 K/mm3 (142-424); Red Blood Count 5.23 M/mm3 (4.60-6.20); Red Cell Distribution Width 14.6 % (11.5-17.5); White Blood Count 7.1 K/mm3 (4.8-10.8)
[2021-11-30 06:51] LABS: Anion Gap 6.7 mEq/L (5-15); Blood Urea Nitrogen 12 mg/dl (9-20); Calcium 8.3 mg/dl (8.4-10.2); Carbon Dioxide 30 mmol/L (22.0-30.0); Chloride 103 mmol/L (98-107); Creatinine Clearance Estimated 172 mL/min (50-200); Estimated Glomerular Filt Rate 118 ml/min (>60); GFR (African American) 142 ML/MIN (>60); Glucose 221 mg/dl (74-100); Potassium 3.7 mmoL/L (3.5-5.1); Sodium 136 mmol/L (136-145)
[2021-11-30 08:39] LABS: PTT Heparin (inpatient only) 47.1 Seconds (23.6-34.0)
--- NOTE | 2021-11-30 08:55 | CA_ITS ---
APPROVED REPORT EXAM: Comprehensive 2D, Doppler, and color-flow Echocardiogram [employer] Advisor: Monica Duncan RDCS Ht: 6 ft 2 in Wt: 220lbs BSA: 2.26 BP: 151/92 mmHg Indications: AF,CAD,SOA,CAD 2D Dimensions LVOT 2.38 cm (M/F) 1.5-2.5 M-Mode Dimensions RVDd 2.96 cm (0.9-2.6) LA Diam 4.61 cm (1.9-4.0) LVDd 6.95 cm (3.5-5.7) Ao Diam 4.38 cm (2.0-3.7) LVDs 5.07 cm (3.5-5.7) IVSd 1.55 cm (0.6-1.1) PWd 1.41 cm (0.6-1.1) EF (Teich) 51.40% FS 27.10% EDV (Teich) 251.30 mL TAPSE 2.31 (<1.7) ESV (Teich) 122.10 mL LV Diastology E Decel Time 233.00 (160-240 msec) E/A Ratio 0.5 MED E' 3.10 (< 7 cm/sec) E'/MED E' Ratio 11.00 (>14) LAT E' 2.90 (<10 cm/sec) E/LAT E' Ratio 11.76 (>14) Mitral Valve MV E Max Van. 34.00 (40-130 cm/s) MV A Velocity 69.00 (40-130 cm/s) E/A Ratio 0.49 MV Decel. Time 233.00 (160-240 ms) MV PHT 68.00 ms Left Ventricle Left atrium is mildly enlarged, l mildly dilated left ventricle, mild concentric left ventricular hypertrophy, reduced left ventricular systolic function, visually estimated ejection fraction 40%, left ventricle appears to be globally hypokinetic. Grade 1 diastolic dysfunction seen without tissue Doppler evidence of raise left atrial pressure. Right Ventricle Right atrium and right ventricle are normal size and contractility. Aortic Valve Aortic valve is minimally thickened and fibrosed, there is no aortic stenosis or aortic insufficiency. Mitral Valve Mitral valve is minimally thickened, there is mild mitral regurgitation. Tricuspid Valve Tricuspid valve grossly normal, there is mild tricuspid regurgitation, tricuspid regurgitation jet velocity is inadequate for calculation of the right ventricular systolic pressure. Pulmonic Valve Pulmonic valve is poorly visualized. Great Vessels Aortic root is normal size. Inferior vena cava is poorly visualized. Pericardium No significant pericardial effusion noted. Conclusion 1. Mildly enlarged left atrium, mildly dilated left ventricle, mild concentric left ventricular hypertrophy, visually estimated ejection fraction 40%, left ventricle is globally hypokinetic. Grade 1 diastolic dysfunction seen without tissue Doppler evidence of raise left atrial pressure. 2. Mild mitral and tricuspid regurgitation. 3. No significant pericardial effusion. 4. Inferior vena cava is poorly visualized. Electronically signed by : Adam Keller MD 11/30/2021 20:43:04
--- NOTE | 2021-11-30 09:07 | HMH.ACPN2 ---
Internal Medicine - PN: Subj *Date: 11/30/21 *Time: 09:07 Interval history: No chest pain overnight. Has been in sinus rhythm. Exam Vital signs and Labs for Last 24 Hours: Temp Pulse Resp BP Pulse Ox 98.2 F 69 17 162/92 H 94 L 11/30/21 08:00 11/30/21 08:00 11/30/21 08:00 11/30/21 08:00 11/30/21 08:00 Laboratory Results - last 24 hr 11/29/21 11:42: POC Glucose 205 H 11/29/21 13:00: APTT 33.9 11/29/21 16:45: POC Glucose 252 H 11/29/21 18:50: APTT 75.2 H* 11/29/21 21:59: POC Glucose 280 H 11/30/21 01:00: APTT 27.3 11/30/21 05:07: POC Glucose 199 H 11/30/21 05:36: WBC 7.1, RBC 5.23, Hgb 15.2, Hct 47.9, MCV 91.6, MCH 29.0, MCHC 31.7 L, RDW 14.6, Plt Count 243, MPV 8.5, Neut % (Auto) 63.3, Lymph % (Auto) 29.1, [place] % (Auto) 5.6, Eos % (Auto) 1.5, Baso % (Auto) 0.4, Neut # (Auto) 4.5, Lymph # (Auto) 2.1, [place] # (Auto) 0.4, Eos # (Auto) 0.1, Baso # (Auto) 0.0 11/30/21 05:36: Sodium 136, Potassium 3.7, Chloride 103, Carbon Dioxide 30, Anion Gap 6.7, BUN 12 D, Creatinine 0.70, Estimated Creat Clear 172, Estimated GFR 118, Est GFR ( Amer) 142, Glucose 221 H, Calcium 8.3 L 11/30/21 08:13: APTT 47.1 H I & O for Last 24 hours: Intake & Output 11/27/21 11/28/21 11/29/21 11/30/21 11:59 11:59 11:59 11:59 Intake Total 477 / 477 1201 / 1201 Output Total 350 / 350 Balance 127 / 127 1201 / 1201 Weight 220 lb 14.451 oz 222 lb 12.8 oz Narrative: Alert, pleasant. Heart rate regular. No edema. Breathing easily. ENT exam clear Assessment and Plan (1) Atrial fibrillation with rapid ventricular response Status: Acute Category: Medical Code(s): I48.91 - Unspecified atrial fibrillation (2) NSTEMI (non-ST elevated myocardial infarction) Status: Acute Category: Medical Code(s): I21.4 - Non-ST elevation (NSTEMI) myocardial infarction (3) Coronary arteriosclerosis Status: Chronic Category: Medical Code(s): I25.10 - Atherosclerotic heart disease of [place] coronary artery without angina pectoris (4) Diabetes mellitus Status: Chronic Qualifiers: Category: Medical Code(s): E11.9 - Type 2 diabetes mellitus without complications (5) Hyperlipidemia Status: Chronic Qualifiers: Category: Medical Code(s): E78.5 - Hyperlipidemia, unspecified (6) Hypertensive heart disease Status: Chronic Qualifiers: Category: Medical Code(s): I11.9 - Hypertensive heart disease without heart failure (7) Tobacco dependence syndrome Status: Chronic Category: Medical Code(s): F17.200 - Nicotine dependence, unspecified, uncomplicated - Assessment and plan all Dx Assessment and Plan for all problems:: Patient's improved, asymptomatic. Cardiology has seen patient and is evaluating for possible left heart cath today.
--- NOTE | 2021-11-30 09:18 | HMH.CNCARD ---
History of Present Illness Consult date: 11/30/21 Requesting physician: Ashish Le Consult reason: atrial fibrillation Chief complaint: A. fib with RVR, elevated troponins, CAD Additional Medical History:: 1. Coronary artery disease A. History of a total of 5 stents placed in 2014 in 2017 B. Abnormal Lexiscan myoview, 10/2019, inferolateral lateral wall ischemia, EF 33% C. Non-ST elevation [place], 11/2021, possibly secondary to A. fib with RVR 2. Continued tobacco use of at least 1 pack/day for greater than 30 years 3. Hypertension A. Echo, 10/2019, mild LAE, normal LV size, moderate concentric LVH. EF 40-45% with mildly hypokinetic interventricular septum, grade 1 diastolic dysfunction. Mild MR and TR. 4. Hyperlipidemia A. Statin intolerant 5. Atrial fibrillation with rapid ventricular response, 11/2021 6. Diabetes mellitus type 2 7. Covid infection, 08/2021 8. Mild fusiform abdominal aortic dilatation A. Abdominal CTA, 04/2021,1. No evidence of renal artery stenosis, aneurysm, FMD, or renal mass. No adrenal mass. 2. Mild fusiform dilatation of the lower abdominal aorta extending to and involving the aortic bifurcation measuring 2.6 x 2.5 cm with fusiform dilatation of the right common iliac artery at 1.8 cm History of present illness: 56-year-old white male, prior patient of Dr. Eisenberg who follows with Dr. Kc for coronary care and has had 5 stents placed over the past several years, who remains a heavy smoker, came to the emergency department with a feeling of new onset chest pressure, rapid heart rate and presyncope. Found to have A. fib with rapid ventricular response. ER treatment with bolus Cardizem resulted in lower rate, he was placed on p.o. Cardizem, and was found to have slightly elevated troponin levels. Admitted to hospital for further diagnostic testing and observation. The above per Dr. Le Patient relates working in the yard on Tuesday without any difficulty when upon picking up a battery to walk up steps he noticed dizziness, palpitations with symptoms radiating into the neck and the head causing a headache and light sensitivity. 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 Due to his cardiac history he was given a sublingual nitroglycerin that did not help but rather intensified the sensations of palpitations and flushing in the head. He was brought to the ER for further evaluation. Found to be in A. fib with RVR and started on IV then p.o. Cardizem with initial rate control and then conversion back to normal sinus rhythm. Patient has no history of atrial fibrillation or TIA/CVA symptoms. relates he does not snore or has never exhibited apneic episodes. Patient's troponins initially were normal but increased significantly by the third blood draw. EKGs initially showed atrial fibrillation with RVR at a rate of 157 bpm then atrial fibrillation with with controlled rate. Both EKGs exhibited lateral ST segment depression. IVCD noted with possible LVH. [facility] History Medical History: Reports:: Atherosclerotic Heart Disease, Atrial Fibrillation, Coronary Artery Disease, Diabetes Mellitus Type 2, Hyperlipidemia, Hypertension, Myocardial Infarction Denies:: Cancer, Diabetes Mellitus Type 1, MRSA *Have you ever received a pneumonia vaccine?: No *Have you received a flu vaccine this season?: No Other Surgeries: Yes: Cardiac Catheterization ([facility] 11/07/14 2 stents, [facility] 06/12/18 3 stents) Amputation: No - *Social History Smoking Status: Current every day smoker Tobacco Type: cigarettes # Packs/Day (cigarettes): 1 Alcohol Intake: never Substance Use Type: denies use *Occupational Status:: employed *Travel in the last 8 weeks: None Family Hx:: Diabetes, Heart Attack Meds Home Medications Medication Instructions Recorded Confirmed Type carvedilol 25 mg tablet 25 mg PO BID 06/16/18 11/28/21 History clopidogrel 75 mg tablet 75 mg PO DAILY 06/16/18 11/29/21 History i
[2021-11-30 12:07] LABS: POC Glucose,Bedside 282 (70-110)
[2021-11-30 14:30] LABS: CATHL Activated Clotting Time 297 SEC (74-125)
[2021-11-30 14:31] LABS: CATHL Activated Clotting Time 344 SEC (74-125)
--- NOTE | 2021-11-30 17:57 | PC.NURSE ---
Pt has done fine since cardiac cath. Pt has been HTN with post-cath values. This RN was told by Dryland Farmer RN that MD Kc was aware of elevated BP and to give scheduled meds. No other acute changes or complaints, will continue to monitor.
[2021-11-30 20:19] LABS: POC Glucose,Bedside 218 (70-110)
[2021-12-01] VITALS: BP 156/64; PULSE 72; PULSE 80; RESP 16; TEMP 36.6; O2SAT 96
[2021-12-01 02:30] LABS: POC Glucose,Bedside 234 (70-110)
[2021-12-01 04:00] VITALS: BP 126/64; PULSE 64; PULSE 70; RESP 16; TEMP 36.6; O2SAT 97
[2021-12-01 05:38] VITALS: BMI 28.5
[2021-12-01 05:50] LABS: POC Glucose,Bedside 287 (70-110)
--- NOTE | 2021-12-01 06:49 | HMH.DCSUM ---
General - General Admission date:: 11/28/21 Discharge date: 12/01/21 HPI HPI: 56-year-old white male, prior patient of Dr. Eisenberg who follows with Dr. Kc for coronary care and has had 5 stents placed over the past several years, who remains a heavy smoker, came to the emergency department with a feeling of new onset chest pressure, rapid heart rate and presyncope. Found to have A. fib with rapid ventricular response. ER treatment with bolus Cardizem resulted in lower rate, he was placed on p.o. Cardizem, and was found to have slightly elevated troponin levels. Admitted to hospital for further diagnostic testing and observation. Hospital Course Hospital Course: 56-year-old male with significant history of coronary artery disease. Admitted for A. fib with RVR and elevated troponin. Converted back to sinus rhythm with IV diltiazem. Taken to the [facility] and found to have multivessel disease. Received 3 stents and three-vessel disease secondary to NSTEMI. Tolerated procedure well. Asymptomatic this morning. Continue dual antiplatelet therapy for 30 days and will then discontinue aspirin. Continue Xarelto for A. fib and his history of cardiomyopathy. Transition to p.o. beta-sandro with metoprolol due to his cardiomyopathy with reduced ejection fraction. Echocardiogram obtained showing EF of 40%. Additionally started on Entresto for heart failure. This combination has controlled his blood pressure well during admission. Patient would benefit from smoking cessation. No desire to quit at this time. Previously followed with Dr. Eisenberg. Wants to continue to see him once he moves to [place]. Plan to follow with cardiology in 1 to 2 weeks. Recommend he see [place] as soon as able to schedule appointment. If unable to see him he needs to see somebody in the meantime, gave him our business card so he can see us in our office in [place]. Answer questions about medication changes and possible side effects. Examined on day of discharge, medically stable for discharge home. Objective Vital signs: Temp Pulse Resp BP Pulse Ox 98 F 64 16 126/64 97 12/01/21 04:00 12/01/21 04:00 12/01/21 04:00 12/01/21 04:00 12/01/21 04:00 Narrative: - Constitutional no acute distress - *Routine HEENT Exam Head: Present: normocephalic Eye: Present: EOMI, PERRL ENT: Present: mucous membranes moist - *Routine Neck Exam Present: supple. Absent: lymphadenopathy - *Routine Respiratory Exam Present: CTA bilaterally - *Routine Cardiovascular Exam Present: RRR - *Routine Abdominal Exam Present: soft, normoactive bowel sounds. Absent: tenderness - *Routine Extremities Exam Absent: cyanosis, clubbing, edema - *Routine Skin Exam Present: warm. Absent: rash - *Routine Neurological Exam Present: alert, oriented X3 Results Labs on day of discharge: Labs from last 24 hours 12/01/21 11/30/21 11/30/21 05:40 19:58 16:40 APTT Activated Clotting Time Sodium Potassium Chloride Carbon Dioxide Anion Gap BUN Creatinine Estimated Creat Clear Estimated GFR Est GFR ( Amer) Glucose POC Glucose 287 H 218 H 234 H Calcium 11/30/21 11/30/21 11/30/21 12:58 12:36 11:44 APTT Activated Clotting Time 297 H* 344 H* Sodium Potassium Chloride Carbon Dioxide Anion Gap BUN Creatinine Estimated Creat Clear Estimated GFR Est GFR ( Amer) Glucose POC Glucose 282 H Calcium 11/30/21 11/30/21 08:13 05:36 APTT 47.1 H Activated Clotting Time Sodium 136 Potassium 3.7 Chloride 103 Carbon Dioxide 30 Anion Gap 6.7 BUN 12 D Creatinine 0.70 Estimated Creat Clear 172 Estimated GFR 118 Est GFR ( Amer) 142 Glucose 221 H POC Glucose Calcium 8.3 L DS: Diagnosis - Discharge Diagnosis (1) Atrial fibrillation with rapid ventricular response Status
[2021-12-01 08:00] VITALS: BP 151/91; PULSE 85; RESP 18; TEMP 36.6; O2SAT 94
--- NOTE | 2021-12-01 08:09 | HMH.PNCARD ---
Subjective Date: 12/01/21 Time: 08:09 Principal diagnosis: A. ang with RVR, non-STEMI Interval history: 56-year-old white male in bed in no acute distress. No complaints overnight. Anxious to go home. In reviewing the patient's medications, he remembered that some of his female family members have been diagnosed with a clotting disorder in the past and have been on long-term anticoagulation. He is unsure of the diagnosis. Exam Vital signs and Labs for Last 24 Hours: Temp Pulse Resp BP Pulse Ox 98 F 64 16 126/64 97 12/01/21 04:00 12/01/21 04:00 12/01/21 04:00 12/01/21 04:00 12/01/21 04:00 Laboratory Results - last 24 hr 11/30/21 08:13: APTT 47.1 H 11/30/21 11:44: POC Glucose 282 H 11/30/21 12:36: Activated Clotting Time 344 H* 11/30/21 12:58: Activated Clotting Time 297 H* 11/30/21 16:40: POC Glucose 234 H 11/30/21 19:58: POC Glucose 218 H 12/01/21 05:40: POC Glucose 287 H I & O for Last 24 hours: Intake & Output 11/28/21 11/29/21 11/30/21 12/01/21 11:59 11:59 11:59 11:59 Intake Total 477 / 477 1201 / 1201 360 / 360 Output Total 350 / 350 200 / 200 Balance 127 / 127 1201 / 1201 160 / 160 Weight 220 lb 14.451 oz 222 lb 10.67 oz 222 lb 10.67 oz - Constitutional no acute distress - *Routine HEENT Exam Head: Present: normocephalic Eye: Present: EOMI, PERRL ENT: Present: mucous membranes moist - *Routine Neck Exam Present: supple. Absent: lymphadenopathy - *Routine Respiratory Exam Present: CTA bilaterally - *Routine Cardiovascular Exam Present: RRR - *Routine Abdominal Exam Present: soft, normoactive bowel sounds. Absent: tenderness - *Routine Extremities Exam Absent: cyanosis, clubbing, edema - *Routine Skin Exam Present: warm. Absent: rash - *Routine Neurological Exam Present: alert, oriented X3 Progress Note: A&P (1) Atrial fibrillation with rapid ventricular response Status: Acute (2) NSTEMI (non-ST elevated myocardial infarction) Status: Acute (3) Coronary arteriosclerosis Status: Chronic (4) Diabetes mellitus Status: Chronic (5) Hyperlipidemia Status: Chronic (6) Hypertensive heart disease Status: Chronic (7) Tobacco dependence syndrome Status: Chronic Assessment and Plan for All Diagnoses:: 1. A. fib with RVR, converted back to sinus rhythm with IV diltiazem. Due to cardiomyopathy patient will be sent home on beta-sandro therapy in the form of metoprolol. Xarelto used for anticoagulation. 2. Non-ST elevation LA with three-vessel disease status post multivessel stenting yesterday. Aspirin and Plavix for 30 days then discontinue aspirin and continue Plavix indefinitely. 3. Hypertension, controlled 4. Ischemic cardiomyopathy with EF of 40% on echo. Patient will be sent home on Entresto and metoprolol 5. Hyperlipidemia, continue atorvastatin therapy 6. Questionable history of familial coagulopath, patient will investigate and let us know the exact diagnosis. Okay for discharge home from cardiology standpoint Home medication recommendations: Aspirin 81 mg daily Plavix 75 mg daily Xarelto 20 mg daily Entresto 24/26 mg twice daily Metoprolol succinate XL 50 mg daily Patient is intolerant of statin therapy and will need consideration for Ranexa Stop Coreg Follow-up in our office in 1 week.
--- NOTE | 2021-12-01 08:34 | PC.NURSE ---
Pt stated will take his 45 minutes to an hour to be here for discharge
--- NOTE | 2021-12-01 09:03 | HMH.PHACLD ---
Jesus Manuel Macario has received discharge medication counseling on the following medications: -ASPIRIN -XARELTO -ENTRESTO -METOPROLOL -PATIENT ALLERGIC TO STATINS.
--- NOTE | 2021-12-02 12:46 | CARE MANAGER ---
Attempted to contact patient regarding follow up from hospital discharge. Left voicemail. JALEN Singh
--- NOTE | 2021-12-04 14:16 | CARE MANAGER ---
Patient returned our earlier phone call. 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 He has no known needs at this time.
== END 2021-12-01 10:02 | disposition home or self-care (01) | DRG 246 ==
LOC: ER 17:33 → 2ND 20:31
PROVIDERS: Internal Medicine; Admitting Provider Internal Medicine Adolescent Medicine; Emergency Provider Emergency Medicine; PCP Family Medicine; Visit Provider Internal Medicine Adolescent Medicine
PROC: 4A023N7 Measurement of Cardiac Sampling and Pressure, Left Heart, Percutaneous Approach (ICD-10-PCS; principal; 2021-11-30 13:00)
DX: I21.4 Non-ST elevation (NSTEMI) myocardial infarction (principal); I48.91 Unspecified atrial fibrillation; I25.10 Atherosclerotic heart disease of native coronary artery without angina pectoris; E11.9 Type 2 diabetes mellitus without complications; I10 Essential (primary) hypertension; F17.210 Nicotine dependence, cigarettes, uncomplicated; Z95.5 Presence of coronary angioplasty implant and graft; E78.5 Hyperlipidemia, unspecified; Z79.4 Long term (current) use of insulin; Z86.16 Personal history of COVID-19
CPT/HCPCS: 36415; 71045; 80048; 82962; 83880; 84484; 85025; 85347; 85730; 92928; 93005; 93306; 93458; 96365; 96375; 99152; 99153; 99285; C1725; C1769; C1875; C1876; C9600; C9803; J1644; Q9967; U0003; U0005

== ENCOUNTER → 2021-12-21 09:09 | Outpatient (CLI) | payer OTHER, SELFPAY ==
[2021-12-21 10:20] LABS: Chloride 103 mmol/L (98-107); Potassium 4.2 mmoL/L (3.5-5.1); Sodium 138 mmol/L (136-145)
[2021-12-21 10:23] LABS: Anion Gap 9.2 mEq/L (5-15); Blood Urea Nitrogen 18 mg/dl (9-20); Calcium 8.1 mg/dl (8.4-10.2); Carbon Dioxide 30 mmol/L (22.0-30.0); Estimated Glomerular Filt Rate 88 ml/min (>60); GFR (African American) 106 ML/MIN (>60); Glucose 206 mg/dl (74-100)
== END ==
PROVIDERS: Visit Provider Physician Assistant
DX: I25.10 Atherosclerotic heart disease of native coronary artery without angina pectoris (principal); I11.9 Hypertensive heart disease without heart failure; E78.5 Hyperlipidemia, unspecified
CPT/HCPCS: 36415; 80048

== ENCOUNTER → 2022-01-20 08:35 | Outpatient (CLI) | payer OTHER, SELFPAY ==
--- NOTE | 2022-01-20 08:36 | CA_ITS ---
FINAL REPORT TECHNIQUE: Grayscale, color Doppler and duplex Doppler ultrasound of the kidneys, aorta and renal arteries was performed. Multiple velocities were measured. CLINICAL HISTORY: HTN,DM,SMOKER FINDINGS: Aorta velocity: 75.2 cm/sec Right kidney: 11.2 cm. No evidence of hydronephrosis or mass. Right intrarenal RI: 0.68 Right renal artery velocity: 132 cm/sec. Right RAR (Renal artery-Aortic Ratio): 1.76 Left Kidney: 12.3 cm. No evidence of hydronephrosis or mass. Left intrarenal RI: 0.7 Left renal artery velocity: 110 cm/sec. Left RAR (Renal Artery-Aortic Ratio): 1.46 IMPRESSION: No evidence of significant renal artery stenosis. Reviewed, Interpreted and Dictated by Stone Garrett III, MD Transcribed by Melanie Bhatti Authenticated by Stone Garrett III, MD on 01/20/2022 10:24:36 AM [facility]
== END ==
PROVIDERS: PCP Family Medicine; Visit Provider Nurse Practitioner Family
DX: E11.9 Type 2 diabetes mellitus without complications (principal); I11.9 Hypertensive heart disease without heart failure; F17.200 Nicotine dependence, unspecified, uncomplicated; Z79.4 Long term (current) use of insulin
CPT/HCPCS: 93976

== ENCOUNTER → 2022-02-10 11:22 | Outpatient (CLI) | payer OTHER, SELFPAY ==
--- NOTE | 2022-02-10 11:27 | XR_ITS ---
FINAL REPORT CLINICAL HISTORY: RT ROTATOR CUFF SYNDROME FINDINGS: RIGHT SHOULDER 3 views of the right shoulder were obtained. There is no acute fracture or dislocation. The joint spaces are intact. There is no soft tissue abnormality. IMPRESSION: No acute fracture Reviewed, Interpreted and Dictated by Stone Garrett III, MD Transcribed by Melanie Bhatti [facility]
== END ==
PROVIDERS: PCP Family Medicine; Visit Provider Family Medicine
DX: M25.511 Pain in right shoulder (principal); M75.101 Unspecified rotator cuff tear or rupture of right shoulder, not specified as traumatic
CPT/HCPCS: 73030

== ENCOUNTER → 2022-08-31 13:02 | Outpatient (CLI) | payer OTHER, SELFPAY ==
--- NOTE | 2022-08-31 13:04 | CA_ITS ---
APPROVED REPORT EXAM: Comprehensive 2D, Doppler, and color-flow Echocardiogram Social Insurance Administrator: Saundra Ken, RCS, RVS Ht: 6 ft 2 in Wt: 232lbs BSA: 2.31 BP: 174/100 mmHg Indications: CAD, reduced EF11/2021=40% ef, HTN, HLD, hx-Afib 2D Dimensions IVSd 1.75 cm LVEF (Visual) 45.00 % PWd 1.37 cm LA Volume 66.10 mL LVDd 6.04 cm LA Volume Index 28.60 mL/m2 (M/F) 16-34 LVDs 4.32 cm LVOT 1.92 cm (M/F) 1.5-2.5 M-Mode Dimensions RVDd 3.17 cm (0.9-2.6) LA Diam 4.53 cm (1.9-4.0) LVDd 5.95 cm (3.5-5.7) Ao Diam 4.17 cm (2.0-3.7) LVDs 3.93 cm (3.5-5.7) IVSd 1.88 cm (0.6-1.1) PWd 1.52 cm (0.6-1.1) EF (Teich) 62.00% EPSs 1.48 cm FS 33.90% EDV (Teich) 176.60 mL TAPSE 1.53 (<1.7) ESV (Teich) 67.10 mL LV Diastology E Decel Time 123.00 (160-240 msec) E/A Ratio 0.64 MED E' 3.10 (< 7 cm/sec) MED A' 6.30 cm/s E'/MED E' Ratio 18.10 (>14) LAT E' 4.10 (<10 cm/sec) LAT A' 9.80 cm/s E/LAT E' Ratio 13.68 (>14) Aortic Valve LVOT Max 76.00 (70-110 cm/s) LVOT VTI 16.71 cm AoV Peak Van. 112.00 (50-130 cm/s) AO Peak GR. 5.00 mmHg AO Mean GR. 2.50 (<5 mmHg) AO VTI 22.70 (18-25 cm) NICOLAS (VTI) 2.13 (2.5-4.5 cm2) Mitral Valve MV A Velocity 87.00 (40-130 cm/s) E/A Ratio 0.64 MV Decel. Time 123.00 (160-240 ms) MV PHT 37.00 ms Pulmonary Valve PV Peak Velocity 101.00 (50-150 cm/s) Left Ventricle Left atrium is mildly enlarged, left ventricle is normal size mild concentric left ventricular hypertrophy, estimated ejection fraction 45% with no regional wall motion abnormality. Doppler evidence of impaired LV relaxation seen. Right Ventricle Right atrium and right ventricle are normal size and contractility. Aortic Valve Aortic valve is minimally thickened and fibrosed there is no aortic stenosis aortic insufficiency. Mitral Valve Mitral valve is grossly normal, there is mild mitral regurgitation. Tricuspid Valve Tricuspid valve grossly normal, there is mild tricuspid regurgitation, tricuspid regurgitation jet velocity is inadequate for calculation of the right ventricular systolic pressure. Pulmonic Valve Pulmonic valve is poorly visualized. Great Vessels Aortic root is normal size. Inferior vena cava is poorly visualized. Pericardium No significant pericardial effusion noted. Conclusion 1. Mildly enlarged atrium, normal left ventricular size, mild concentric left ventricular hypertrophy, estimated ejection fraction 45% with no regional wall motion abnormality, grade 1 diastolic dysfunction seen. 2. Mild mitral and tricuspid regurgitation. 3. No significant pericardial effusion. 4. Inferior vena cava is poorly visualized. Electronically signed by : Adam Keller MD 08/31/2022 18:17:08
== END ==
PROVIDERS: PCP Family Medicine; Visit Provider Nurse Practitioner Family
DX: I50.20 Unspecified systolic (congestive) heart failure (principal); I48.91 Unspecified atrial fibrillation; I11.0 Hypertensive heart disease with heart failure; I50.22 Chronic systolic (congestive) heart failure; I25.10 Atherosclerotic heart disease of native coronary artery without angina pectoris; E78.2 Mixed hyperlipidemia; F17.200 Nicotine dependence, unspecified, uncomplicated
CPT/HCPCS: 93306

== ENCOUNTER → 2022-12-27 09:57 | Outpatient (CLI) | payer OTHER, SELFPAY ==
[2022-12-27 10:33] LABS: Basophils # 0.1 K/mm3 (0-0.2); Basophils % 0.4 % (0.1-2.0); Eosinophils # 0.1 K/mm3 (0.0-0.4); Hematocrit 50.4 % (42.0-52.0); Lymphocytes # 2.4 K/mm3 (0.7-4.5); Lymphocytes % 20.7 % (10-50); Mean Corpuscular HGB Conc 31.7 g/dL (31.8-35.4); Mean Corpuscular Volume 91.5 fl (80-94); Mean Platelet Volume 8.1 fl (7.4-10.4); Monocytes # 0.8 K/mm3 (0.1-1.0); Monocytes % 6.8 % (1.7-9.3); Neutrophils # 8.1 K/mm3 (1.8-7.8); Neutrophils % 71.1 % (37.0-80.0); Platelet Count 302 K/mm3 (142-424); White Blood Count 11.4 K/mm3 (4.8-10.8)
[2022-12-27 10:54] LABS: Alanine Aminotransferase 13 U/L (12-78); Albumin Level 3.7 g/dl (3.5-5.0); Alkaline Phosphatase 117 U/L (38-126); Anion Gap 10.6 mEq/L (5-15); Aspartate Amino Transferase 20 U/L (17-59); Bilirubin,Indirect 1.2 mg/dL (0.0-0.9); Bilirubin,Total 1.2 mg/dl (0.2-1.3); Bilirubin,Unconjugated 1.2 mg/dL (0.0-1.1); Blood Urea Nitrogen 20 mg/dl (9-20); Calcium 8.2 mg/dl (8.4-10.2); Carbon Dioxide 25 mmol/L (22.0-30.0); Chloride 99 mmol/L (98-107); Chol/HDL Ratio 6.1 (1-3.5); Cholesterol 189 mg/dl (140-200); Estimated Glomerular Filt Rate 78 ml/min (>60); GFR (African American) 94 ML/MIN (>60); Glucose 250 mg/dl (74-100); HDL Cholesterol 31 mg/dl (40-60); Potassium 3.6 mmoL/L (3.5-5.1); Sodium 131 mmol/L (136-145); Total Protein,Serum 6.9 g/dl (6.3-8.2); Triglycerides 196 mg/dl (30-150); VLDL Cholesterol 39 mg/dL (0-40)
[2022-12-27 11:05] LABS: Direct LDL Cholesterol 122.27 mg/dL (100-129)
[2022-12-27 11:25] LABS: Thyroid Stimulating Hormone 1.47 uIU/mL (0.465-4.68)
[2022-12-27 12:00] LABS: Free T4 (Free Thyroxine) 1.36 ng/dl (0.78-2.19)
== END ==
PROVIDERS: PCP Family Medicine; Visit Provider Physician Assistant
DX: R06.00 Dyspnea, unspecified (principal); E13.69 Other specified diabetes mellitus with other specified complication; I25.10 Atherosclerotic heart disease of native coronary artery without angina pectoris; I11.0 Hypertensive heart disease with heart failure; I50.20 Unspecified systolic (congestive) heart failure; I50.22 Chronic systolic (congestive) heart failure; I48.0 Paroxysmal atrial fibrillation; E78.2 Mixed hyperlipidemia; I63.9 Cerebral infarction, unspecified; R60.9 Edema, unspecified; F17.200 Nicotine dependence, unspecified, uncomplicated; G47.33 Obstructive sleep apnea (adult) (pediatric); Z79.4 Long term (current) use of insulin
CPT/HCPCS: 36415; 80048; 80061; 80076; 84439; 84443; 85025

== ENCOUNTER 2023-01-15 14:44 | Observation (INO) | payer OTHER, SELFPAY ==
[2023-01-15 15:01] VITALS: BMI 29.4
[2023-01-15 15:02] VITALS: BP 186/112; PULSE 91; RESP 18; TEMP 36.6; O2SAT 96
--- NOTE | 2023-01-15 15:14 | EXP.HP ---
History of Present Illness *Admission Date: 01/15/23 *Reason for visit:: Shortness of breath, chest tightness *History of present illness: Mr. Macario is a 57-year-old gentleman with diabetes, tobacco use disorder, CAD who presented to [facility] ER with complaint of shortness of breath at rest that began yesterday. States he has had increased cough and has not felt well from a respiratory standpoint for the past several weeks however yesterday became worse with worsening shortness of breath and increased nonproductive cough. Denies chest pain, fever, nausea or vomiting. Has been taking his meds as prescribed. On arrival to the ER, work-up initiated with CBC, CMP, EKG, CTA of chest and troponins. High-sensitivity troponin elevated at [facility]. CT obtained showing concern for small subsegmental PE. Patient treated with nebulizer and dose of Solu-Medrol. States his breathing got better after that treatment. Was also started on heparin drip due to concern for PE. 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 ER consulted cardiology at [facility] for admission, patient accepted as transfer. On arrival, patient is stable on room air. Denies any chest pain. Blood pressure noted to be elevated at 186/112 on admission vitals. Patient states he has not had his meds today. States that shortness of breath is improved. Does report an extensive smoking history, between 1 and 3 packs a day for the past 30+ years. Last heart cath was a year ago. Cardiac cath findings and echocardiogram as follows: IMPRESSION Severe three-vessel coronary disease. Successful stenting of the proximal to mid dominant right coronary artery, mid LAD, proximal to mid circumflex artery reducing the stenosis to 0% Dilated ventricle with reduced ejection fraction; Mildly elevated LVEDP Echo obtained in November with a EF of 40% and grade 1 diastolic dysfunction. Repeat performed in August with EF of 45%. Patient currently on metoprolol 200 mg daily, Xarelto, Entresto, Lasix, and Plavix. [facility] Disclaimer: The information contained in this section may have been updated after the patient was seen, as this information can be updated by other users. Medical History Atrial fibrillation Atrial fibrillation with rapid ventricular response Coronary arteriosclerosis Coronary artery disease Diabetes mellitus Hyperlipidemia Hypertensive heart disease Neuropathic pain NSTEMI (non-ST elevated myocardial infarction) DANIEL (obstructive sleep apnea) Pancreatitis, acute Restless legs Sciatica Systolic heart failure Tobacco dependence syndrome Family History Prostate cancer Father Family history of hypertension Social History Smoking Status: Current every day smoker tobacco type: cigarettes packs per day: 1 alcohol intake: never substance use type: denies use current occupational status: employed Travel in the last 8 weeks: Inside the [place] caffeine: Yes Review of Systems Review of Systems Review of systems (narrative): 14 point review of systems performed, pertinent positives and negatives as per [facility] Meds Home Medications and Allergies Home Medications Medication Instructions Recorded Confirmed Type clopidogrel 75 mg tablet (Plavix) 75 mg PO DAILY Blood thinner 06/16/18 01/15/23 History insulin degludec 100 unit/mL (3 60 unit SQ DAILY Diabetes 06/19/18 01/15/23 History mL) subcutaneous pen (Tresiba FlexTouch U-100 insulin) pantoprazole 40 mg tablet,delayed 40 mg PO DAILY GERD 10/16/19 01/15/23 History release hydrocodone 10 mg-acetaminophen 1 each PO Q6HP PRN PAIN 11/29/21 01/15/23 History 325 mg tablet sacubitril 97 mg-valsartan 103 mg 1 tab PO BID #60 tabs 12/29/21
--- NOTE | 2023-01-15 15:49 | ECG_ITS ---
APPROVED REPORT Exam: Resting ECG HR:86 bpm ECG Measurements Heart Rate 86 AXES UT 167 P 60 QRSd 134 QRS 102 QT 407 T 185 QTc 450 Conclusion SINUS RHYTHM RIGHT AXIS DEVIATION [QRS AXIS > 100] INTRAVENTRICULAR CONDUCTION DELAY [130+ ms QRS DURATION] PROBABLE INFERIOR MYOCARDIAL INFARCTION , OF INDETERMINATE AGE [35 ms Q WAVE IN II/aVF] ABNORMAL ECG UNCONFIRMED REPORT Electronically signed by : Ashish Le MD 01/16/2023 21:45:38
[2023-01-15 16:00] VITALS: BP 185/105; PULSE 100; PULSE 86; RESP 18; TEMP 36.8; O2SAT 93
--- NOTE | 2023-01-15 16:15 | HMH.ITSTN ---
nurse made aware of high blood pressure.
[2023-01-15 16:16] LABS: Coronavirus 19, PCR Not Detected (NotDetected); Influenza A, PCR Not Detected (NotDetected); Influenza B, PCR Not Detected (NotDetected)
[2023-01-15 18:45] VITALS: PULSE 77; PULSE 80
[2023-01-15 19:08] LABS: Troponin I 0.07 ng/ml (0.00-0.034)
[2023-01-15 19:14] LABS: Hemoglobin A1C 8.5 % (4.0-6.0)
[2023-01-15 20:00] VITALS: BP 178/92; PULSE 100; PULSE 98; RESP 20; TEMP 36.8; O2SAT 94
[2023-01-15 21:00] LABS: POC Glucose,Bedside 405 (70-110)
[2023-01-15 22:10] LABS: Troponin I 0.07 ng/ml (0.00-0.034)
[2023-01-15 23:49] VITALS: PULSE 73; PULSE 78
[2023-01-16] VITALS: BP 158/93; PULSE 98; RESP 19; TEMP 36.7; O2SAT 90
[2023-01-16 04:00] VITALS: BP 143/86; PULSE 90; PULSE 93; RESP 18; TEMP 36.7; O2SAT 95; BMI 29.5
--- NOTE | 2023-01-16 06:04 | PC.NURSE ---
PATIENS BP HAS BEEN ELEVATED. LAST BP 143/86. NSR ON TELEMETRY. FSBSs ELEVATED: 9 PM WAS 405 AND RECEIVED 12 UNITS S/S INSULIN. THIS AM AT 0600 FSBS 322 AND RECEIVED 8 UNITS S/S INSULIN. DENIES CP/SOA OR DISCOMFORT.
[2023-01-16 06:29] VITALS: PULSE 85; PULSE 86
--- NOTE | 2023-01-16 07:17 | EXP.DC.SUM ---
General Admission date:: 01/15/23 Discharge date: 01/16/23 HPI HPI HPI: Mr. Macario is a 57-year-old gentleman with diabetes, tobacco use disorder, CAD who presented to [facility] ER with complaint of shortness of breath at rest that began yesterday. States he has had increased cough and has not felt well from a respiratory standpoint for the past several weeks however yesterday became worse with worsening shortness of breath and increased nonproductive cough. Denies chest pain, fever, nausea or vomiting. Has been taking his meds as prescribed. On arrival to the ER, work-up initiated with CBC, CMP, EKG, CTA of chest and troponins. High-sensitivity troponin elevated at [facility]. CT obtained showing concern for small subsegmental PE. Patient treated with nebulizer and dose of Solu-Medrol. States his breathing got better after that treatment. Was also started on heparin drip due to concern for PE. 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 ER consulted cardiology at for admission, patient accepted as transfer. On arrival, patient is stable on room air. Denies any chest pain. Blood pressure noted to be elevated at 186/112 on admission vitals. Patient states he has not had his meds today. States that shortness of breath is improved. Does report an extensive smoking history, between 1 and 3 packs a day for the past 30+ years. Last heart cath was a year ago. Cardiac cath findings and echocardiogram as follows: IMPRESSION Severe three-vessel coronary disease. Successful stenting of the proximal to mid dominant right coronary artery, mid LAD, proximal to mid circumflex artery reducing the stenosis to 0% Dilated ventricle with reduced ejection fraction; Mildly elevated LVEDP Echo obtained in November with a EF of 40% and grade 1 diastolic dysfunction. Repeat performed in August with EF of 45%. Patient currently on metoprolol 200 mg daily, Xarelto, Entresto, Lasix, and Plavix. Hospital Course Hospital Course Hospital Course: 67-year-old male with CAD, diabetes, tobacco use disorder and recent finding on CT last month of possible lytic lesion in vertebrae T7.? Presented to [facility] with shortness of breath.? Found to have subsegmental PEs in his lower lobes as well as elevated troponin consistent with NSTEMI.? Initiated on heparin drip, nebulizer, steroids.? Responded well to nebulizer and steroids with improved shortness of breath.? Transferred for further evaluation and management.? Transition to Lovenox on arrival as patient is stable on room air. Did well overnight. No oxygen requirement during admission. Stable for discharge home the following morning. Will need close follow-up with cardiology. Problems addressed as follows: Subsegmental PEs -On heparin drip at [facility], transitioned to Lovenox 105 mg twice daily (1 mg/kg therapeutic dosing). Did well overnight, transitioned to Xarelto 15 mg twice daily for the next 21 days orally on day of discharge. 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 Will need further dosing after the 21-day loading course to be continued by either his PCP or cardiology at follow-up. Patient remained stable on oxygen. Risk factors for blood clots include suspected neoplasm (lytic lesion of T7 vertebrae) and family history of factor V Leiden deficiency. Further management as an outpatient. Dyspnea/COPD -Emphysematous changes on CT, patient does not have prior diagnosis of COPD however given extensive smoking history and changes on imaging, shortness of breath likely related to COPD exacerbation.? Responded well to nebulizer and steroids. Prescribed nebulizer on discharge. Neb treatments and inhalers started during admission. Continue DuoNebs every 6 hours as needed at home. Complete 5 days total
[2023-01-16 07:24] VITALS: BP 155/96; PULSE 89; RESP 18; TEMP 36.7; O2SAT 95
[2023-01-16 07:58] LABS: Basophils % 0.1 % (0.1-2.0); Hematocrit 42.2 % (42.0-52.0); Hemoglobin 13.2 g/dL (14.1-18.0); Lymphocytes # 2.3 K/mm3 (0.7-4.5); Lymphocytes % 20.3 % (10-50); Mean Corpuscular HGB Conc 31.3 g/dL (31.8-35.4); Mean Corpuscular Hemoglobin 27.9 pg (27.0-31.2); Mean Corpuscular Volume 89.3 fl (80-94); Mean Platelet Volume 8.2 fl (7.4-10.4); Monocytes # 0.7 K/mm3 (0.1-1.0); Monocytes % 5.9 % (1.7-9.3); Neutrophils # 8.4 K/mm3 (1.8-7.8); Neutrophils % 73.6 % (37.0-80.0); Platelet Count 313 K/mm3 (142-424); Red Blood Count 4.72 M/mm3 (4.60-6.20); Red Cell Distribution Width 13.6 % (11.5-17.5); White Blood Count 11.4 K/mm3 (4.8-10.8)
[2023-01-16 08:00] VITALS: PULSE 90
[2023-01-16 08:05] LABS: Chol/HDL Ratio 7.4 (1-3.5); Cholesterol 147 mg/dl (140-200); HDL Cholesterol 20 mg/dl (40-60); Triglycerides 118 mg/dl (30-150); VLDL Cholesterol 24 mg/dL (0-40)
[2023-01-16 08:11] LABS: Carbon Dioxide 28 mmol/L (22.0-30.0); Chloride 101 mmol/L (98-107); Potassium 3.4 mmoL/L (3.5-5.1); Sodium 139 mmol/L (136-145)
[2023-01-16 08:12] LABS: Alanine Aminotransferase 21 U/L (12-78); Albumin Level 3.2 g/dl (3.5-5.0); Alkaline Phosphatase 127 U/L (38-126); Anion Gap 13.4 mEq/L (5-15); Aspartate Amino Transferase 23 U/L (17-59); Bilirubin,Total 0.6 mg/dl (0.2-1.3); Blood Urea Nitrogen 18 mg/dl (9-20); Calcium 8.1 mg/dl (8.4-10.2); Creatinine Clearance Estimated 137 mL/min (50-200); Estimated Glomerular Filt Rate 88 ml/min (>60); GFR (African American) 106 ML/MIN (>60); Globulin 3.1 g/dL (1.3-3.2); Glucose 273 mg/dl (74-100); Magnesium 1.9 mg/dl (1.6-2.3); Total Protein,Serum 6.3 g/dl (6.3-8.2)
[2023-01-16 08:16] LABS: Direct LDL Cholesterol 100.95 mg/dL (100-129)
--- NOTE | 2023-01-17 13:08 | CARE MANAGER ---
MD ordered nebulizer for patient on discharge on 01/16/23. Called [facility] and they have order and demographic information for patient. No other issues noted.
--- NOTE | 2023-01-18 11:39 | CARE MANAGER ---
Attempted x2 to contact patient related to hospital discharge. RAINA left. JALEN Singh
== END 2023-01-16 10:58 | disposition home or self-care (01) ==
PROVIDERS: Admitting Provider Internal Medicine Adolescent Medicine; PCP Family Medicine; Visit Provider Internal Medicine Adolescent Medicine
DX: I26.93 Single subsegmental thrombotic pulmonary embolism without acute cor pulmonale; F17.210 Nicotine dependence, cigarettes, uncomplicated; I11.0 Hypertensive heart disease with heart failure; I50.22 Chronic systolic (congestive) heart failure; I48.0 Paroxysmal atrial fibrillation; I25.10 Atherosclerotic heart disease of native coronary artery without angina pectoris; J43.9 Emphysema, unspecified; E78.5 Hyperlipidemia, unspecified; I21.4 Non-ST elevation (NSTEMI) myocardial infarction; E11.9 Type 2 diabetes mellitus without complications; Z79.4 Long term (current) use of insulin; Z79.899 Other long term (current) drug therapy; Z95.5 Presence of coronary angioplasty implant and graft
CPT/HCPCS: 36415; 80053; 80061; 82962; 83036; 83735; 84484; 85025; 93005; 94640; C9803; G0378; U0003; U0005